=== PATIENT | male | born 1995 | race American Indian/Alaskan Native ===

== ENCOUNTER 2017-06-24 21:16 | Emergency (ER) | payer MEDICAID, OTHER ==
--- NOTE | 2017-06-24 21:44 | C.PDOC ---
History Of Present Illness 21 year old male presents to the ED c/o occasional regurgitation of food for the past 2-3 weeks. Patient reports it usually occurs with heavy dry foods like pasta or white rice. Patient had multiple ED presentation for chest discomfort which was anxiety related. Patient still smoker marijuana daily, noted in prior evaluations on May and June 2016. Patient is also c/o mild rash in the head of his penis which resolved [employer]. Patient denies fever, chills, abdominal pain, nausea, diarrhea. Time Seen by Provider: 06/24/17 21:28 Chief Complaint (Nursing): Abdominal Pain History Per: Patient History/Exam Limitations: no limitations Onset/Duration Of Symptoms: Days Current Symptoms Are (Timing): Still Present Recent travel outside of the [place]: No Additional History Per: Patient Past Medical History Reviewed: Historical Data, Nursing Documentation, Vital Signs Vital Signs: Last Vital Signs Temp 98.4 F 06/24/17 21:32 Pulse 84 06/24/17 21:32 Resp 16 06/24/17 21:32 BP 106/42 L 06/24/17 21:32 Pulse Ox 98 06/24/17 21:45 - Medical History PMH: No Chronic Diseases Surgical History: No Surg Hx Family History: States: Unknown Family Hx - Social History Hx Alcohol Use: No Hx Substance Use: Yes - Immunization History Hx Tetanus Toxoid Vaccination: No Hx Influenza Vaccination: No Hx Pneumococcal Vaccination: No Review Of Systems Constitutional: Negative for: Fever, Chills Cardiovascular: Negative for: Chest Pain Respiratory: Negative for: Cough, Shortness of Breath Gastrointestinal: Positive for: Vomiting. Negative for: Abdominal Pain, Diarrhea Skin: Negative for: Rash Neurological: Negative for: Weakness, Numbness Physical Exam - Physical Exam Appears: Non-toxic, No Acute Distress, Other (Mild canabis intoxicated) Skin: Normal Color, Warm, Dry Head: Atraumatic Eye(s): bilateral: Normal Inspection Ear(s): Bilateral: Normal Nose: No Discharge Oral Mucosa: Moist Throat: Normal, No Erythema, No Exudate Neck: Normal ROM, Supple Chest: Symmetrical Cardiovascular: Rhythm Regular, No Murmur Respiratory: Normal Breath Sounds, No Rales, No Rhonchi, No Wheezing Gastrointestinal/Abdominal: Soft, No Tenderness, No Guarding, No Rebound Male Genital: No Testicular Swelling, No Scrotal Swelling, No Circumcised Extremity: Normal ROM, No Tenderness, No Swelling Neurological/Psych: Oriented x3 Gait: Steady ED Course And Treatment O2 Sat by Pulse Oximetry: 98 (On RA) Pulse Ox Interpretation: Normal Medical Decision Making Medical Decision Making: Impression: abdominal pain Plan: * Maalox 30 ml PO * Pepcid 20 mg PO mild occasional dysphagia with regurgitation, more with heavy foods like dry white rice or heavy pastas. no alarm signals no difficult passing fluids no malnutrition suspect gastritis and early satiety/discomfort with eating heavy meals. Suspect ongoing cannabis use/anxiety ? cyclic vomiting related to cannabis use. Refer for outpatient upper endoscopy PPI diet hygiene. Disposition Doctor Will See Patient In The: Office Counseled Patient/Family Regarding: Studies Performed, Diagnosis - Disposition Referrals: [facility] [Outside] [facility] [Outside] Hans Chong MD [Staff Provider] - Disposition: HOME/ ROUTINE Disposition Time: 21:44 Condition: GOOD Additional Instructions: Pepcid 20 mg @ night- lowers stomach acid in case of gastritis provoking your symptoms diet hygiene: avoid foods which irritate your stomach Follow-up in our outpatient clinic to consider upper endoscopy- they will refer you to a swahili teacher Have your PMD refer you to a swahili teacher. Prescriptions: Famotidine [Pepcid] 20 mg PO HS #30 tab Instructions: Nausea and Vomiting, Adult Forms: [facility] (Slovak) - Clinical Impression Clinical Impression: Vomiting - Scribe Statement The provider has reviewed the documentation as recorded by the Scribe Mark Karimi All medical record entries made by the Scribe were at my direction and personally dictated by me. I have reviewed the chart and agree that the record accurately reflects my personal performance of the history, physical exam, medical decision making, and the department course for this patient. I have also personally directed, reviewed, and agree with the discharge instructions and disposition.
[2017-06-24] MEDS ORDERED: Alum-Mag Hydrox-Simethicone Susp (30 mL) PO STA (21:48)
[2017-06-24 21:49] VITALS: BP 106/42; PULSE 84; RESP 16; TEMP 98.4; O2SAT 98
[2017-06-24] MEDS ORDERED: Alum-Mag Hydrox-Simethicone Susp (30 mL) ONE (21:53)
--- NOTE | 2017-06-25 23:37 | CARD ---
APPROVED REPORT EKG Measurement Heart [id number] [id number] <Conclusion> Sinus rhythm with short MS Rightward axis Borderline ECG
== END 2017-06-24 21:56 | disposition home or self-care (01) ==
LOC: C.ER 21:16
DX: R11.10 Vomiting, unspecified (principal)